=== PATIENT | female | born 1965 | race Caucasian/White ===

== ENCOUNTER 2020-02-05 17:55 | Emergency (ER) | payer OTHER, SELFPAY ==
--- NOTE | ~2020-02-05 | XR_ITS ---
EXAMINATION: XR barium swallow EXAM DATE: 02/05/2020 19:17 INDICATION: Dysphagia, feels like something is stuck in throat. TECHNIQUE: Standard thick followed by thin contrast barium esophagram examination was performed. The DAP for this procedure was 1.3 Gycm2. There is no prior study for comparison. FINDINGS: There is no laryngeal penetration. The pharynx is symmetric and without evidence of mass le nadeem or mucosal irregularity. There is no esophageal stricture or mass identified. There are no eso phageal diverticula. Gastroesophageal junction is normal in appearance. IMPRESSION: Normal exam. Reviewed, dictated and finalized at location A. IMPRESSION: Normal exam.
[2020-02-05 18:02] VITALS: BP 150/77; PULSE 88; RESP 18; TEMP 36.7; O2SAT 100
[2020-02-05 18:12] VITALS: BP 144/70; PULSE 81; RESP 21; O2SAT 96
--- NOTE | 2020-02-05 18:27 | ED.GENADULT ---
HPI - General Adult General Chief complaint: Unspecified Stated complaint: Eating and got something stuck Time Seen by Provider: 02/05/20 18:06 Source: patient Mode of arrival: ambulatory Limitations: no limitations History of Present Illness HPI narrative: Patient is a 54-year-old female who presents to emergency department noting that she swallowed some pizza today and now has had the sensation of a foreign body and has been unable to tolerate p.o. intake aside from slight toleration of her saliva. Patient notes she has had this issue historically and has required a dilatated shot in the past by GI. Patient denies any URI symptoms dyspnea fever chills nausea vomiting. Patient has not taken anything for her symptoms Related Data Home Medications Medication Instructions Recorded Confirmed famotidine [Pepcid] 20 mg PO DAILY 08/30/19 09/04/19 ferrous sulfate 325 mg PO DAILY 09/04/19 09/04/19 Allergies Allergy/AdvReac Type Severity Reaction Status Date / Time No Known Allergies Allergy Verified 02/05/20 18:20 Review of Systems Review of Systems: All systems reviewed & are unremarkable except as noted in HPI and below PMFSH Past Medical History Medical History (Updated 02/05/20 @ 19:35 by Malvin Allison PA-C) Adenomatous colon polyp Dysphagia GERD (gastroesophageal reflux disease) Morbid obesity Surgical History Surgical History (Updated 02/05/20 @ 18:28 by Malvin Allison PA-C) History of esophagogastroduodenoscopy (EGD) Family History Family History (Updated 07/30/19 @ 10:16 by Esperanza Cooper) Father Liver cancer Mother Breast cancer Heart disease Kidney disease Diabetes mellitus Other Hypertension Social History Social History Smoking status: Current every day smoker Alcohol intake: current Exam Narrative: Exam Narrative: GENERAL: Well-appearing, obese, and in no acute distress. HEAD: Normocephalic, atraumatic. EYES: PERRLA and EOMI. ENT: Nares clear, no rhinorrhea or epistaxis. Mucous membranes moist. Oropharynx without tonsillar hypertrophy exudate or other lesions. CHEST: Clear to auscultation. No respiratory distress. No wheezes rales or rhonchi HEART: Regular rate and rhythm. No murmur heard. Normal peripheral pulses. ABDOMEN: Soft, nontender, nondistended. EXTREMITIES: Normal range of motion. No edema. SKIN: Warm, dry, no rash. NEURO: No focal deficits. Alert and oriented x3. PSYCH: Normal mood and affect. Course Course Emergency Course: Patient in the room at this time in no distress aware of case findings treatment plan and diagnosis agreeing to follow-up with GI as instructed advised to stay to a soft diet was given medications and is able to tolerate p.o. intake at this time without difficulty and is feeling better. No high risk changes in the blood work Vital Signs Vital signs: Vital Signs Temperature 98.0 F 02/05/20 18:02 Pulse Rate 88 02/05/20 18:02 Respiratory Rate 18 02/05/20 18:02 Blood Pressure 150/77 H 02/05/20 18:02 Pulse Oximetry 100 02/05/20 18:02 Temperature 98.0 F 02/05/20 18:02 Pulse Rate 90 02/05/20 19:07 Respiratory Rate 22 H 02/05/20 19:01 Blood Pressure 119/63 02/05/20 19:01 Pulse Oximetry 98 02/05/20 19:01 Medical Decision Making MDM Narrative Medical decision making narrative: Patient with likely esophageal foreign body resolved able to swallow liquids feeling better at this time with medications felt appropriate for outpatient reevaluation by gastroenterology provided with reasons to return and instructed adhere to a soft diet Vital Signs Vital Signs: Vital Signs Temperature 98.0 F 02/05/20 18:02 Pulse Rate 88 02/05/20 18:02 Respiratory Rate 18 02/05/20 18:02 Blood Pressure 150/77 H 02/05/20 18:02 Pulse Oximetry 100 02/05/20 18:02 Temperature 98.0 F 02/05/20 18:02 Pulse Rate 90 02/05/20 19:07 Respiratory
[2020-02-05 18:29] LABS: Basophils Percent Auto 0.4 % (0.2-1.2); Eosinophils Absolute Auto 0.1 K/mm3 (0-0.3); Eosinophils Percent Auto 1.7 % (0-4.4); Hematocrit 38.5 % (37.0-47.0); Hemoglobin 12.7 g/dL (12.0-15.0); Immature Granulocyte Absolute 0.02 K/mm3 (0.00-0.031); Immature Granulocyte Percent A 0.3 % (0-0.5); Lymphocytes Absolute Auto 2.69 K/mm3 (0.9-3.2); Lymphocytes Percent Auto 34.6 % (18.3-44.2); Mean Corpuscular Hemoglobin 28.5 pg (26-34); Mean Corpuscular Volume 86.5 fl (80-100); Monocytes Absolute Auto 0.7 K/mm3 (0.1-0.6); Monocytes Percent Auto 8.5 % (2.6-8.5); Neutrophils Absolute Auto 4.2 K/mm3 (1.3-6.7); Neutrophils Percent Auto 54.5 % (45.5-73.1); Platelet Count Result 348 k/mm3 (150-375); Red Blood Count 4.45 M/mm3 (4.2-5.4); Red Cell Distribution Width 13.5 % (11.5-14.5); White Blood Count 7.8 K/mm3 (4.5-10.0)
[2020-02-05 18:38] LABS: Blood Urea Nitrogen 9 mg/dL (7-17); Calcium 9.1 mg/dL (8.4-10.2); Carbon Dioxide 31 mmol/L (22-30); Chloride 99 mmol/L (98-107); Estimated CRCL calculation 113 ml/min; Estimated Glomerular Filt Rate > 60; Glucose 190 mg/dL (65-105); Potassium 3.8 mmol/L (3.4-5.0); Sodium 135 mmol/L (137-145)
--- NOTE | 2020-02-05 18:56 | PC.NURSE ---
returns from barium swallow study. States continues to feel like she has a foreign body in throat.
[2020-02-05 18:58] VITALS: BP 131/54; PULSE 76; RESP 19; O2SAT 98
[2020-02-05 19:01] VITALS: BP 119/63; PULSE 78; RESP 22; O2SAT 98
[2020-02-05] MEDS: HYOSCYAMINE SULFATE 0.125 MG TABLET PO (19:03)
[2020-02-05] MEDS: NITROGLYCERIN SL 0.4 MG TABLET SUBLINGUAL (19:04)
[2020-02-05] MEDS: GLUCAGON FOR INJ 1 MG VIAL IV PUSH (19:06)
[2020-02-05 19:07] VITALS: PULSE 90
--- NOTE | 2020-02-05 19:23 | PC.NURSE ---
Pt reports is feeling better after meds po and IV. Report to SHRUTI Murguia, to continue care.
[2020-02-05 20:20] VITALS: BP 148/76; PULSE 78; RESP 16; O2SAT 98
== END 2020-02-05 20:13 | disposition home or self-care (01) ==
PROVIDERS: Emergency Medicine Emergency Medical Services; Emergency Provider Emergency Medicine; PCP Internal Medicine
DX: R13.10 Dysphagia, unspecified (principal); K21.9 Gastro-esophageal reflux disease without esophagitis; E66.01 Morbid (severe) obesity due to excess calories; Z68.42 Body mass index [BMI] 45.0-49.9, adult; F17.200 Nicotine dependence, unspecified, uncomplicated
CPT/HCPCS: 36415; 74220; 80048; 85025; 96374; 99284; A9270; J1610

== ENCOUNTER 2020-02-07 17:24 | Outpatient (CLI) | payer OTHER, SELFPAY ==
--- NOTE | ~2020-02-07 | XR_ITS ---
EXAMINATION: XR chest 2V DATE: 02/07/2020 17:43 INDICATION: Asthma. Shortness of breath. TECHNIQUE: Frontal and lateral views of the chest were obtained. COMPARISON: Chest 2 views 08/23/2018 FINDINGS: The chest demonstrates clear lungs without pneumonia, pleural effusion, or pneumothorax. Th e heart size is normal. There is an implanted electronic device in the anterior chest wall. IMPRESSION: 1. No acute cardiopulmonary disease. Reviewed, dictated and finalized at location A.
== END 2020-02-07 17:25 | disposition home or self-care (01) ==
PROVIDERS: Visit Provider Internal Medicine
DX: J45.909 Unspecified asthma, uncomplicated (principal)
CPT/HCPCS: 71046

== ENCOUNTER 2020-03-12 00:17 | Outpatient (CLI) | payer OTHER, SELFPAY ==
[2020-03-12 19:00] LABS: SARS-CoV-2 RNA PCR Negative
== END 2020-03-12 00:18 | disposition home or self-care (01) ==
LOC: ANHCOVIDDT 00:18
PROVIDERS: Visit Provider Internal Medicine Gastroenterology
DX: Z01.818 Encounter for other preprocedural examination (principal); Z11.59 Encounter for screening for other viral diseases
CPT/HCPCS: 87635; C9803; U0003

== ENCOUNTER 2020-03-14 03:45 | Day surgery (SDC) | payer OTHER, SELFPAY ==
[2020-03-06 14:10] VITALS: BMI 47.0
[2020-03-14 08:34] VITALS: BMI 47.9
[2020-03-14 08:38] VITALS: BP 156/73; PULSE 69; RESP 18; TEMP 36.1; O2SAT 97
--- NOTE | 2020-03-14 08:50 | WPDANESEPPF ---
Anes - Initial Pre Proc Eval Procedure: Operation Date: 03/14/20 09:15 Proposed Procedures p Esophagogastroduodenoscopy - Sachin Culver MD Date/Time: 03/14/20 08:50 Surgeon: Sachin Culver MD Pre Op Diagnosis: Dysphagia Patient Data Age: 54 Gender: F Height: 5 ft 6 in Weight: 134.6 kg Last Vital Signs Temp 36.1 C L 03/14/20 08:38 Pulse 69 03/14/20 08:38 Resp 18 03/14/20 08:38 BP 156/73 H 03/14/20 08:38 Pulse Ox 97 03/14/20 08:38 Allergies Allergy/AdvReac Type Severity Reaction Status Date / Time No Known Allergies Allergy Verified 03/14/20 08:31 Home Medications Medication Instructions Recorded Confirmed Type albuterol sulfate 90 mcg/actuation 1 inhalation INHALATION Q4H PRN 07/30/19 03/06/20 Rx aerosol inhaler #18 gm cholecalciferol (vitamin D3) 1,250 50,000 unit PO WEEKLY #30 cap 07/30/19 03/06/20 Rx mcg (50,000 unit) capsule ferrous sulfate 325 mg PO DAILY 09/04/19 03/06/20 History metoprolol tartrate 25 mg PO HS 03/06/20 03/06/20 History metoprolol tartrate 50 mg PO DAILY 03/06/20 03/06/20 History pantoprazole 40 mg PO DAILY 03/06/20 03/06/20 History vitamin B complex [B 1 tablet PO DAILY 03/06/20 03/06/20 History Complex-Vitamin B12] peg 3350-electrolytes 236 240 ml PO Q10M #4000 ml 03/12/20 Rx gram-22.74 gram-6.74 gram-5.86 gram solution Patient hx anesthesia problems: none Family hx anesthesia problems: none PMFSH Past Medical History Medical History Adenomatous colon polyp Dysphagia GERD (gastroesophageal reflux disease) Malaise Morbid obesity Neck discomfort Obese Pre-diabetes Surgical History Surgical History History of esophagogastroduodenoscopy (EGD) Family History Family History Father Liver cancer Mother Breast cancer Heart disease Kidney disease Diabetes mellitus Other Hypertension Social History Social History Smoking status: Current every day smoker Alcohol intake: current Gender identity (if verbalized by the patient): Female Anes - Eval Final PreProcedure Day of Procedure 03/14/20 08:50 Patient weight: morbidly obese Heart: regular rate and rhythm Lungs: clear to auscultation Airway: Mallampati scale class II and special considerations poor dentition Neurological: alert and oriented Last oral intake: >/= 8 hours ASA classification: III Emergent: no Anesthetic plan: proceed Anesthesia type and monitoring: general GIVS and standard monitoring Informed Consent: The patient's anesthetic plan and its attendant risks and benefits were discussed with the patient/family/POA. Questions were solicited and answers provided to the satisfaction of the patient/family/POA.
[2020-03-14] MEDS: LACTATED RINGERS 1,000 ML 150 ML IV CONT (08:51)
--- NOTE | 2020-03-14 09:51 | WPDHPUPDATE1 ---
History and Physical Update Update Date/Time: 03/14/20 09:51 History and Physical has been reviewed, including an updated exam of the patient. There are NO changes in the patient's condition. Risks, benefits, and alternatives have been discussed and questions answered. Patient agrees to proceed with procedure.
[2020-03-14] MEDS: BENZOCAINE (*SP) 60 ML SPRAY CAN (HURRICAINE) 1 SPRAY MUCOUS MEM (09:55)
[2020-03-14 10:10] VITALS: BP 125/70; PULSE 74; RESP 16; O2SAT 99
[2020-03-14 10:20] VITALS: BP 130/69; PULSE 75; RESP 18; O2SAT 100
[2020-03-14 10:30] VITALS: BP 132/72; PULSE 79; O2SAT 100
== END 2020-03-14 10:51 | disposition home or self-care (01) ==
PROVIDERS: Visit Provider Internal Medicine Gastroenterology
PROC: 0DJ08ZZ Inspection of Upper Intestinal Tract, Via Natural or Artificial Opening Endoscopic (ICD-10-PCS; CPT 43235; principal; 2020-03-14 09:15)
DX: K22.2 Esophageal obstruction (principal); K44.9 Diaphragmatic hernia without obstruction or gangrene; K21.9 Gastro-esophageal reflux disease without esophagitis; R73.03 Prediabetes; E66.01 Morbid (severe) obesity due to excess calories; Z68.42 Body mass index [BMI] 45.0-49.9, adult; F17.200 Nicotine dependence, unspecified, uncomplicated
CPT/HCPCS: 43249; C1726; J2001; J2704; J7120

== ENCOUNTER 2021-03-13 05:56 | Emergency (ER) | payer OTHER, SELFPAY ==
--- NOTE | ~2021-03-13 | XR_ITS ---
EXAMINATION: XR chest 2V DATE: 03/13/2021 06:37 INDICATION: Shortness of breath. TECHNIQUE: Frontal and lateral views of the chest were obtained. COMPARISON: Chest 2 views 02/07/2020 FINDINGS: Calcified right lung nodules and calcified right hilar lymph nodes are consistent with old granulomatous disease. No pleural effusion or pneumothorax. The heart size is normal. There is electr onic implant in left anterior chest wall. There is mild chronic anterior wedging of multiple midthora cic vertebral bodies. IMPRESSION: 1. No acute cardiopulmonary disease. Reviewed, dictated and finalized at location A.
--- NOTE | 2021-03-13 06:00 | ED.SOB ---
HPI - SOB/Dyspnea General Chief Complaint: Shortness of Breath/Dyspnea <Donovan Douglas MD - Last Filed: 03/14/21 13:10> Stated Complaint: shortness of breath, fever <Donovan Douglas MD - Last Filed: 03/14/21 13:10> Time Seen by Provider: 03/13/21 05:59 <Donovan Douglas MD - Last Filed: 03/14/21 13:10> History of Present Illness HPI Narrative: 55 yo female w/ h/o htn, palpitations presents to the ED for SOB. She reports that she has been SOB since she woke up this morning. This was accompanied by a feeling that her heart is racing and a warm fuzzy feeling. No CP, cough, congestion, calf pain/swelling. <Donovan Douglas MD - Last Filed: 03/14/21 13:10> Related Data Home Medications: Home Medications Medication Instructions Recorded Confirmed ferrous sulfate 325 mg PO DAILY 09/04/19 03/06/20 metoprolol tartrate 50 mg PO DAILY 03/06/20 03/06/20 vitamin B complex [B 1 tablet PO DAILY 03/06/20 03/06/20 Complex-Vitamin B12] Prilosec OTC 03/13/21 <Donovan Douglas MD - Last Filed: 03/14/21 13:10> Allergies/Adverse Reactions: Allergies Allergy/AdvReac Type Severity Reaction Status Date / Time No Known Allergies Allergy Verified 03/13/21 06:30 <Donovan Douglas MD - Last Filed: 03/14/21 13:10> Review of Systems Review of Systems: All systems reviewed & are unremarkable except as noted in HPI and below <Donovan Douglas MD - Last Filed: 03/14/21 13:10> Constitutional: Constitutional: Denies chills and Denies fever(s) <Donovan Douglas MD - Last Filed: 03/14/21 13:10> Cardiovascular: Cardiovascular: Denies chest pain <Donovan Douglas MD - Last Filed: 03/14/21 13:10> Respiratory: Respiratory: Denies cough, Reports dyspnea and Denies wheezing <Donovan Douglas MD - Last Filed: 03/14/21 13:10> Gastrointestinal: Gastrointestinal: Denies abdominal pain and Denies nausea <Donovan Dogulas MD - Last Filed: 03/14/21 13:10> Genitourinary: Genitourinary: Reports no additional female genitourinary complaints <Donovan Douglas MD - Last Filed: 03/14/21 13:10> Musculoskeletal: Musculoskeletal: Denies back pain <Donovan Douglas MD - Last Filed: 03/14/21 13:10> Neurologic: Denies dizziness and Denies weakness <Donovan Douglas MD - Last Filed: 03/14/21 13:10> [facility] Past Medical History Medical History: Medical History (Updated 03/14/21 @ 00:00 by [facility]) Adenomatous colon polyp Dysphagia GERD (gastroesophageal reflux disease) Malaise Morbid obesity Neck discomfort Obese Pre-diabetes <Donovan Douglas MD - Last Filed: 03/14/21 13:10> Surgical History Surgical History: Surgical History History of esophagogastroduodenoscopy (EGD) <Donovan Douglas MD - Last Filed: 03/14/21 13:10> Family History Family History: Family History Father Liver cancer Mother Breast cancer Heart disease Kidney disease Diabetes mellitus Other Hypertension <Donovan Douglas MD - Last Filed: 03/14/21 13:10> Social History Social History: Social History Smoking status: Current every day smoker Alcohol intake: current Gender identity (if verbalized by the patient): Female <Donovan Douglas MD - Last Filed: 03/14/21 13:10> Exam Const: General: no acute distress and alert <Donovan Douglas MD - Last Filed: 03/14/21 13:10> Nutritional Appearance: obese <Donovan Douglas MD - Last Filed: 03/14/21 13:10> Orientation/consciousness: patient oriented x3 <Donovan Douglas MD - Last Filed: 03/14/21 13:10> HENMT: Head: normal to inspection <Donovan Douglas MD - Last Filed: 03/14/21 13:10> Neck: Neck: normal visual inspection <Donovan Douglas MD - Last Filed: 03/14/21 13:10> Chest: Chest palpati
[2021-03-13 06:05] VITALS: BP 152/113; PULSE 99; RESP 18; TEMP 36.6; O2SAT 99
--- NOTE | 2021-03-13 06:07 | ECG_ITS ---
Measurements Intervals [place] Rate: 94 P: 64 IA: 189 QRS: 68 QRSD: 96 T: 48 QT: 359 QTc: 449 Interpretive Statements SINUS RHYTHM MINIMAL Q WAVES- INFERIOR LEADS BASELINE ARTIFACT- I, II, III, AVR, AVL, AVF, V3-V6 BORDERLINE ECG Electronically Signed On 03-13-2021 6:42:48 CDT by Eddy Aponte D.O.
[2021-03-13 06:27] LABS: Alveolar/Arterial O2 Gradient 1.7 mmHg; Base Excess ABG 3.9 mEq/l (+/-2.0); Device ROOM AIR; Fractional Inspired Oxygen 21 %; HCO3 ABG 28.1 mEq/l (22.0-26.0); Modified Allen's Test Pass; Oxygen Content ABG 19.2 %vol (16.0-22.0); Oxygen Saturation ABG 97.8 % (95.0-100.0); Oxyhemoglobin 93.6 % THb (90.0-100.0); PCO2 ABG 40.9 mmHg (35.0-45.0); PO2 ABG 99.1 mmHg (80.0-100.0); PO2 FiO2 Ratio Arterial Blood 4.72 %; Site Drawn LEFT RADIAL; Total Hemoglobin 14.5 g/dL (12.0-18.0); pH ABG 7.455 (7.350-7.450)
[2021-03-13 06:36] LABS: Basophils Absolute Auto 0.1 K/mm3 (0.0-0.1); Basophils Percent Auto 0.6 % (0.2-1.2); Eosinophils Absolute Auto 0.2 K/mm3 (0-0.3); Hematocrit 43.7 % (37.0-47.0); Hemoglobin 14.3 g/dL (12.0-15.0); Immature Granulocyte Absolute 0.03 K/mm3 (0.00-0.031); Immature Granulocyte Percent A 0.3 % (0-0.5); Immature Platelet Fraction Pct 2.7 % (0.9-11.2); Lymphocytes Absolute Auto 3.57 K/mm3 (0.9-3.2); Lymphocytes Percent Auto 37.5 % (18.3-44.2); Mean Corpuscular HGB Conc 32.7 g/dl (32-36); Mean Corpuscular Hemoglobin 28.6 pg (26-34); Mean Corpuscular Volume 87.4 fl (80-100); Mean Platelet Volume 9.5 fl (7.4-10.4); Monocytes Absolute Auto 0.8 K/mm3 (0.1-0.6); Monocytes Percent Auto 8.2 % (2.6-8.5); Neutrophils Absolute Auto 4.9 K/mm3 (1.3-6.7); Neutrophils Percent Auto 51.4 % (45.5-73.1); Platelet Count Result 389 k/mm3 (150-375); Red Cell Distribution Width 13.8 % (11.5-14.5); White Blood Count 9.5 K/mm3 (4.5-10.0)
[2021-03-13 06:59] VITALS: BP 166/96; PULSE 92; RESP 18; O2SAT 100
[2021-03-13 07:22] LABS: INR 0.9; Prothrombin Time 12.4 Seconds (11.1-14.7)
[2021-03-13 07:24] LABS: Anion Gap 8 mmol/L (8-16); Blood Urea Nitrogen 12 mg/dL (7-17); Carbon Dioxide 30 mmol/L (22-30); Chloride 99 mmol/L (98-107); Estimated CRCL calculation 109 ml/min; Estimated Glomerular Filt Rate > 60; Glucose 151 mg/dL (65-105); Partial Thromboplastin Time 26.6 SECONDS (22.3-36.8); Potassium 3.8 mmol/L (3.4-5.0); Sodium 137 mmol/L (137-145)
[2021-03-13 07:31] LABS: D Dimer 0.39 ug/mL (<0.48)
[2021-03-13 07:46] VITALS: BP 117/65; PULSE 89; RESP 17; O2SAT 98
[2021-03-13 08:08] VITALS: BP 132/76; PULSE 91; RESP 18; O2SAT 99
== END 2021-03-13 08:10 | disposition home or self-care (01) ==
PROVIDERS: Emergency Medicine; Emergency Provider Emergency Medicine; PCP Internal Medicine
DX: R06.00 Dyspnea, unspecified (principal); K21.9 Gastro-esophageal reflux disease without esophagitis; Z86.010 Personal history of colon polyps; R73.03 Prediabetes; E66.01 Morbid (severe) obesity due to excess calories; Z68.42 Body mass index [BMI] 45.0-49.9, adult; F17.200 Nicotine dependence, unspecified, uncomplicated; R94.31 Abnormal electrocardiogram [ECG] [EKG]
CPT/HCPCS: 36415; 36600; 71046; 80048; 82805; 85025; 85055; 85380; 85610; 85730; 93005; 99284

== ENCOUNTER 2021-04-17 22:32 | Emergency (ER) | payer OTHER, SELFPAY ==
--- NOTE | ~2021-04-17 | XR_ITS ---
XR chest 2V DATE: 04/17/2021 23:19 INDICATION: Shortness of breath. Covid 19. TECHNIQUE: PA and lateral views COMPARISON: 03/13/2021 2 view chest FINDINGS: Electronic implant is again noted in the medial mid left anterior chest wall. Normal heart size. No hilar or mediastinal enlargement. The lower left cardiac margin is obliterated and there is increased density overlying the lingular ar ea on the lateral view, suggesting lingular atelectasis and/or infiltrate. Cardiophrenic fat pad can simulate this appearance but the is considered less likely. If there is need for definitive determina tion, consider CT chest. The lungs are otherwise clear. No pleural effusion or pulmonary vascular congestion or pneumothorax. Normal heart size. No hilar or mediastinal enlargement. IMPRESSION: Possible lingular infiltrate and/atelectasis Reviewed, dictated and finalized at location A.
[2021-04-17 22:53] VITALS: BP 149/85; PULSE 89; RESP 18; TEMP 36.2; O2SAT 95
--- NOTE | 2021-04-17 22:56 | ECG_ITS ---
Measurements Intervals [place] Rate: 85 P: 48 HI: 189 QRS: 46 QRSD: 94 T: 48 QT: 353 QTc: 422 Interpretive Statements SINUS RHYTHM MINIMAL Q WAVES- INFERIOR LEADS BORDERLINE ECG Electronically Signed On 04-18-2021 6:51:16 CDT by Eddy Aponte D.O.
[2021-04-17 23:25] LABS: Basophils Percent Auto 0.2 % (0.2-1.2); Eosinophils Percent Auto 0.5 % (0-4.4); Hematocrit 41.5 % (37.0-47.0); Hemoglobin 13.6 g/dL (12.0-15.0); Immature Granulocyte Absolute 0.01 K/mm3 (0.00-0.031); Immature Granulocyte Percent A 0.2 % (0-0.5); Lymphocytes Absolute Auto 1.44 K/mm3 (0.9-3.2); Lymphocytes Percent Auto 34.6 % (18.3-44.2); Mean Corpuscular HGB Conc 32.8 g/dl (32-36); Mean Corpuscular Hemoglobin 28.8 pg (26-34); Mean Corpuscular Volume 87.7 fl (80-100); Mean Platelet Volume 9.2 fl (7.4-10.4); Monocytes Absolute Auto 0.4 K/mm3 (0.1-0.6); Monocytes Percent Auto 8.4 % (2.6-8.5); Neutrophils Absolute Auto 2.3 K/mm3 (1.3-6.7); Neutrophils Percent Auto 56.1 % (45.5-73.1); Platelet Count Result 223 k/mm3 (150-375); Red Blood Count 4.73 M/mm3 (4.2-5.4); Red Cell Distribution Width 13.6 % (11.5-14.5); White Blood Count 4.2 K/mm3 (4.5-10.0)
[2021-04-17 23:33] LABS: Anion Gap 7 mmol/L (8-16); Blood Urea Nitrogen 9 mg/dL (7-17); Calcium 8.8 mg/dL (8.4-10.2); Carbon Dioxide 26 mmol/L (22-30); Chloride 99 mmol/L (98-107); Estimated CRCL calculation 123 ml/min; Estimated Glomerular Filt Rate > 60; Glucose 132 mg/dL (65-110); Potassium 3.6 mmol/L (3.4-5.0); Sodium 132 mmol/L (137-145)
--- NOTE | 2021-04-18 02:52 | PC.NURSE ---
This nurse went into room to start IV and give toradol. Patient refused IV and toradol.
--- NOTE | 2021-04-18 03:24 | ED.SOB ---
HPI - SOB/Dyspnea General Chief Complaint: Shortness of Breath/Dyspnea Stated Complaint: covid positive Time Seen by Provider: 04/18/21 01:32 History of Present Illness HPI Narrative: Patient is a 55-year-old female who presents ER with cough and shortness of breath related to Covid. First diagnosed with Covid on 04/08/2021. She reports that she had her first fever this evening and was febrile to 101.1 ?F. She reports she has developed some new cough and achiness in her chest over the last day. She had no previous issues with her Covid. She is unvaccinated. Related Data Home Medications Medication Instructions Recorded Confirmed ferrous sulfate 325 mg PO DAILY 09/04/19 03/06/20 metoprolol tartrate 50 mg PO DAILY 03/06/20 03/06/20 vitamin B complex [B 1 tablet PO DAILY 03/06/20 03/06/20 Complex-Vitamin B12] Prilosec OTC 03/13/21 Allergies Allergy/AdvReac Type Severity Reaction Status Date / Time No Known Allergies Allergy Verified 04/17/21 22:56 Review of Systems Review of Systems: All systems reviewed & are unremarkable except as noted in HPI and below Constitutional: Constitutional: Denies chills, Reports fatigue and Reports fever(s) ENT: Denies nasal congestion and Denies sore throat Cardiovascular: Cardiovascular: Denies chest pain, Denies rapid heart rate and Denies radiating jaw, neck or arm pain Respiratory: Respiratory: Reports cough, Reports dyspnea and Denies wheezing Gastrointestinal: Gastrointestinal: Denies abdominal pain, Denies nausea and Denies vomiting [facility] Past Medical History Medical History (Updated 04/18/21 @ 03:25 by Agustín Giron MD) Adenomatous colon polyp Dysphagia GERD (gastroesophageal reflux disease) Malaise Morbid obesity Neck discomfort Obese Pre-diabetes Surgical History Surgical History History of esophagogastroduodenoscopy (EGD) Family History Family History Father Liver cancer Mother Breast cancer Heart disease Kidney disease Diabetes mellitus Other Hypertension Social History Social History Smoking status: Current every day smoker Alcohol intake: current Gender identity (if verbalized by the patient): Female Sexual Orientation (if Verbalized by the Patient): Straight or Heterosexual Exam Narrative: GENERAL: Well-appearing, well-nourished, and in no acute distress. HEAD: Normocephalic, atraumatic. CHEST: Clear to auscultation. No respiratory distress. HEART: Regular rate and rhythm. Normal peripheral pulses. ABDOMEN: Soft, nontender, nondistended. EXTREMITIES: Normal range of motion. No edema. SKIN: Warm, dry, no rash. NEURO: Alert and oriented x3. PSYCH: Normal mood and affect. Course Vital Signs Vital signs: Vital Signs Temperature 97.1 F L 04/17/21 22:53 Pulse Rate 89 04/17/21 22:53 Respiratory Rate 18 04/17/21 22:53 Blood Pressure 149/85 H 04/17/21 22:53 Pulse Oximetry 95 04/17/21 22:53 Temperature 97.1 F L 04/17/21 22:53 Pulse Rate 89 04/18/21 03:40 Respiratory Rate 21 H 04/18/21 03:40 Blood Pressure 146/82 H 04/18/21 03:40 Pulse Oximetry 97 04/18/21 03:40 MDM - SOB/Dyspnea Lab Data Result diagrams: 04/17/21 23:11 04/17/21 23:11 Labs: Lab Results 04/17/21 04/17/21 Range/Units 23:11 23:11 WBC 4.2 L (4.5-10.0) K/mm3 RBC 4.73 (4.2-5.4) M/mm3 Hgb 13.6 (12.0-15.0) g/dL Hct 41.5 (37.0-47.0) % MCV 87.7 (80-100) fl MCH 28.8 (26-34) pg MCHC 32.8 (32-36) g/dl RDW 13.6 (11.5-14.5) % Plt Count 223 (150-375) k/mm3 MPV 9.2 (7.4-10.4) fl Immature Gran % (Auto) 0.2 (0-0.5) % Neut % (Auto) 56.1 (45.5-73.1) % Lymph % (Auto) 34.6 (18.3-44.2) % [place] % (Auto) 8.4 (2.6-8.5) % Eos % (Auto) 0.5 (0-4.4) % Baso % (Auto) 0.2
[2021-04-18 03:40] VITALS: BP 146/82; PULSE 89; RESP 21; O2SAT 97
== END 2021-04-18 03:46 | disposition home or self-care (01) ==
PROVIDERS: Emergency Provider Emergency Medicine; PCP Internal Medicine
DX: U07.1 COVID-19 (principal); J12.82 Pneumonia due to coronavirus disease 2019; E66.01 Morbid (severe) obesity due to excess calories; R73.03 Prediabetes; F17.210 Nicotine dependence, cigarettes, uncomplicated
CPT/HCPCS: 36415; 71046; 80048; 85025; 93005; 99284

== ENCOUNTER 2021-12-07 07:34 | Emergency (ER) | payer OTHER, SELFPAY ==
[2021-12-07] VITALS (28 sets, daily range): BP systolic 106–161; BP diastolic 52–92; PULSE 73–93; RESP 14–22; TEMP 36.4–36.8; O2SAT 94–100
--- NOTE | ~2021-12-07 | CT_ITS ---
EXAMINATION: CT brain wo con INDICATION: Headache COMPARISON: None TECHNIQUE: Standard unenhanced head CT. The dose-length product (DLP) was 605.33 mGy-cm. The mA was a djusted according to patient size. Iterative reconstruction technique was employed. FINDINGS: There is no intracranial hemorrhage, acute infarction, or abnormal mass lesion. The ventric les are normal. There is no abnormal mass effect or midline shift. The ortiz-white matter differentiat ion is normal. The basal cisterns are patent. The orbits are normal. The paranasal sinuses, mastoids and calvarium are normal. IMPRESSION: 1. No acute intracranial abnormality. Reviewed, dictated and finalized at location A.
--- NOTE | ~2021-12-07 | CT_ITS ---
Patient Name: Patient Name MR#: Patient MRN Accession#: Accession Numbers EXAMINATION: CTA brain carotid DATE: 12/07/2021 17:47 INDICATION: unsteady gait TECHNIQUE: Computed tomographic angiography (CTA) of the head was performed without and with 100 mL O mnipaque-350 intravenous contrast. CTA of the neck was performed with intravenous contrast. The dose- length product was 1397.20 mGy-cm. Maximum intensity projection and volume rendered 3D-reconstruction s were created by the technologist on a separate workstation. COMPARISON: CT brain 12/07/2021. FINDINGS: CTA NECK: Aortic arch and proximal great vessels: Atherosclerotic calcifications at the visualized aortic arch and proximal great vessels. Right common carotid, carotid bifurcation, and internal carotid artery: Mild (less than 50%) stenosis at the carotid bifurcation. Calcified and noncalcified atherosclerotic plaque at the carotid bifurca tion. There is 0% stenosis of the proximal right internal carotid artery relative to normal distal ar yonatan lumen diameter (NASCET criteria). Left common carotid, carotid bifurcation, and internal carotid artery: No significant stenosis. No si gnificant atherosclerosis.There is 0% stenosis of the proximal left internal carotid artery relative to normal distal artery lumen diameter (NASCET criteria). Vertebral arteries: No significant stenosis. Vertebral arteries co-dominant. Other findings: No concerning finding in the lungs, spine, thyroid or mediastinum. CTA HEAD: No large vessel occlusion, aneurysm, high flow vascular malformation, nidus or extravasation. CT BRAIN: No acute large vessel infarct, intracranial hemorrhage, mass, or hydrocephalus. Trace right mastoid e ffusion. IMPRESSION: 1. Negative for intracranial large vessel occlusion. 2. No significant stenosis involving the carotid or vertebral arteries. 3. 0% stenosis of the proximal right internal carotid artery relative to normal distal artery lumen d iameter (NASCET criteria). 4. 0% stenosis of the proximal left internal carotid artery relative to normal distal artery lumen di ameter. Reviewed, dictated and finalized at location K. IMPRESSION: 1. Negative for intracranial large vessel occlusion. 2. No significant stenosis involving the carotid or vertebral arteries. 3. 0% stenosis of the proximal right internal carotid artery relative to normal distal artery lumen diameter (NASCET criteria). 4. 0% stenosis of the proximal left internal carotid artery relative to normal distal artery lumen diameter.
--- NOTE | 2021-12-07 07:40 | ECG_ITS ---
Measurements Intervals [place] Rate: 78 P: 55 ND: 237 QRS: 49 QRSD: 102 T: 39 QT: 375 QTc: 430 Interpretive Statements SINUS RHYTHM WITH FIRST DEGREE AV BLOCK NONDIAGNOSTIC INFERIOR Q-WAVES COMPARED TO ECG 04/17/2021 23:01:36 FIRST DEGREE AV BLOCK NOW PRESENT Electronically Signed On 12-07-2021 15:28:57 CDT by Cliff Peñaloza M.D.
--- NOTE | 2021-12-07 07:42 | ED.DIZZY ---
HPI - Dizziness General Chief Complaint: Dizziness Stated Complaint: unsteady gait Source: patient Mode of arrival: EMS Limitations: no limitations History of Present Illness HPI Narrative: Pt awoke this morning and felt off balance leaning to left when she got up and walked. Pt almost fell. Pt says the symptoms resolve when she sits down. Pt does not feel like she is going to pass out and denies CP or palpitations. Pt says she bent over and stood up a few days ago and got very lightheaded and dizzy and then had a LONG but all that eventually resolved. Pt has had vertigo in past but this feels different. MD elicited complaint: dizziness and difficulty walking Onset (ago): minute(s) (40) Timing: sudden onset Severity: moderate Description: off-balance and difficulty walking History of similar symptoms: No Exacerbating factors: standing Relieving factors: remaining still and lying down Associated symptoms: denies other symptoms Related Data Home Medications Medication Instructions Recorded Confirmed ferrous sulfate 325 mg PO DAILY 09/04/19 03/06/20 metoprolol tartrate 50 mg PO DAILY 03/06/20 03/06/20 vitamin B complex [B 1 tablet PO DAILY 03/06/20 03/06/20 Complex-Vitamin B12] Prilosec OTC 03/13/21 rosuvastatin 10 mg BYMOUTH DAILY 12/07/21 12/07/21 Allergies Allergy/AdvReac Type Severity Reaction Status Date / Time No Known Allergies Allergy Verified 04/17/21 22:56 Review of Systems Review of Systems: All systems reviewed & are unremarkable except as noted in HPI and below PMFSH Past Medical History Medical History (Updated 12/07/21 @ 11:09 by Scott Lopez III, DO) Adenomatous colon polyp Dysphagia GERD (gastroesophageal reflux disease) Malaise Morbid obesity Neck discomfort Obese Pre-diabetes Surgical History Surgical History History of esophagogastroduodenoscopy (EGD) Family History Family History Father Liver cancer Mother Breast cancer Heart disease Kidney disease Diabetes mellitus Other Hypertension Social History Social History Smoking status: Current every day smoker Alcohol intake: current Gender identity (if verbalized by the patient): Female Sexual Orientation (if Verbalized by the Patient): Straight or Heterosexual Exam Const: General: no acute distress and alert Orientation/consciousness: patient oriented x3 HENMT: Head: normal to inspection Ears: TM's normal bilaterally Eyes: Conjunctivae: conjunctivae normal Pupils: Equal, round and reactive pupils present EOM: EOMs intact bilaterally Neck: Neck: normal visual inspection Resp: Effort & Inspection: normal respiratory effort Auscultation: clear to auscultation bilaterally Cardio: Rate: regular rate Rhythm: regular rhythm GI: GI Palp: Yes Soft to palpation Skin: General skin exam: normal color Neuro: General: patient oriented x3, moves all extremities, no meningeal signs, no focal motor deficits and CN's II-XI intact bilaterally Cranial nerves: Yes Nystagmus not present Extrem: General: normal to inspection and no pedal edema Psych: Appearance: grossly normal Mental Status: mental status grossly normal Affect: normal affect Thought content: Yes Normal thought content present Course Vital Signs Vital signs: Vital Signs Temperature 98.2 F 12/07/21 07:35 Pulse Rate 88 12/07/21 07:35 Respiratory Rate 20 12/07/21 07:35 Blood Pressure 106/92 H 12/07/21 07:35 Pulse Oximetry 98 12/07/21 07:35 Temperature 97.6 F 12/07/21 11:54 Pulse Rate 85 12/07/21 18:02 Respiratory Rate 20 12/07/21 18:02 Blood Pressure 112/56 L 12/07/21 18:02 Pulse Oximetry 98 12/07/21 18:02 MDM - Dizziness Lab Data Result diagrams: 12/07/21 07:44 12/07/21 07:44 Labs: Lab Result
[2021-12-07 07:50] LABS: Basophils Absolute Auto 0.1 K/mm3 (0.0-0.1); Basophils Percent Auto 0.8 % (0.2-1.2); Eosinophils Absolute Auto 0.2 K/mm3 (0-0.3); Eosinophils Percent Auto 2.3 % (0-4.4); Hematocrit 44.7 % (37.0-47.0); Hemoglobin 14.1 g/dL (12.0-15.0); Immature Granulocyte Absolute 0.02 K/mm3 (0.00-0.031); Immature Granulocyte Percent A 0.3 % (0-0.5); Lymphocytes Absolute Auto 2.45 K/mm3 (0.9-3.2); Lymphocytes Percent Auto 37.7 % (18.3-44.2); Mean Corpuscular HGB Conc 31.5 g/dl (32-36); Mean Corpuscular Hemoglobin 28.4 pg (26-34); Mean Corpuscular Volume 89.9 fl (80-100); Mean Platelet Volume 8.9 fl (7.4-10.4); Monocytes Absolute Auto 0.5 K/mm3 (0.1-0.6); Monocytes Percent Auto 8.2 % (2.6-8.5); Neutrophils Absolute Auto 3.3 K/mm3 (1.3-6.7); Neutrophils Percent Auto 50.7 % (45.5-73.1); Platelet Count Result 324 k/mm3 (150-375); Red Blood Count 4.97 M/mm3 (4.2-5.4); Red Cell Distribution Width 14.1 % (11.5-14.5); White Blood Count 6.5 K/mm3 (4.5-10.0)
[2021-12-07 08:07] LABS: Alanine Aminotransferase 23 U/L (4-35); Albumin Level 4.4 g/dL (3.5-5.1); Alkaline Phosphatase 85 U/L (38-126); Anion Gap 6 mmol/L (8-16); Aspartate Amino Transferase 27 U/L (14-36); Bilirubin,Total 0.6 mg/dL (0.2-1.3); Blood Urea Nitrogen 11 mg/dL (7-17); Calcium 9.1 mg/dL (8.4-10.2); Carbon Dioxide 28 mmol/L (22-30); Chloride 103 mmol/L (98-107); Estimated CRCL calculation 121 ml/min; Estimated Glomerular Filt Rate > 60; Glucose 161 mg/dL (65-110); Potassium 3.6 mmol/L (3.4-5.0); Sodium 137 mmol/L (137-145)
[2021-12-07] MEDS: MECLIZINE HCL 25 MG TABLET PO (08:18)
[2021-12-07] MEDS: SODIUM CHLORIDE 0.9% IV 1,000 ML 999 ML IV CONT (08:18)
[2021-12-07] MEDS: ASPIRIN 81 MG CHEWABLE TABLET 324 MG PO (10:40)
--- NOTE | 2021-12-07 12:07 | PC.NURSE ---
Lunch ordered for the pt
--- NOTE | 2021-12-07 16:54 | PC.NURSE ---
bed status at [facility] - no bed at this time
--- NOTE | 2021-12-07 21:39 | PC.NURSE ---
Ambulance Update: As per MANDY Teran, new ambulance ETA is 23:30.
== END 2021-12-07 21:56 | disposition short-term general hospital (02) ==
PROVIDERS: Emergency Provider Emergency Medicine; PCP Internal Medicine
DX: R26.89 Other abnormalities of gait and mobility (principal); R73.03 Prediabetes; K21.9 Gastro-esophageal reflux disease without esophagitis; E66.01 Morbid (severe) obesity due to excess calories; Z68.42 Body mass index [BMI] 45.0-49.9, adult; Z86.010 Personal history of colon polyps; F17.200 Nicotine dependence, unspecified, uncomplicated; I44.0 Atrioventricular block, first degree
CPT/HCPCS: 36415; 70450; 70496; 70498; 80053; 85025; 93005; 96360; 99285; A9270; J7030; Q9967

== ENCOUNTER 2022-05-01 11:54 | Emergency (ER) | payer OTHER, SELFPAY ==
[2022-05-01] VITALS (18 sets, daily range): BP systolic 137–151; BP diastolic 77–88; PULSE 58–70; RESP 12–26; TEMP 36.6; O2SAT 95–100
--- NOTE | ~2022-05-01 | XR_ITS ---
EXAMINATION: XR chest 1V portable DATE: 05/01/2022 12:52 INDICATION: Chest pain TECHNIQUE: frontal view of the chest was obtained. COMPARISON: Chest radiograph dated 04/17/2021 FINDINGS: The lungs remain clear with no focal airspace opacities, pulmonary edema, pleural effusion or pneumot horax. The cardiomediastinal silhouette is normal. IMPRESSION: 1. No acute cardiopulmonary disease. Reviewed, dictated and finalized at location A.
--- NOTE | 2022-05-01 11:55 | ECG_ITS ---
Measurements Intervals [place] Rate: 59 P: 57 MT: 238 QRS: 45 QRSD: 92 T: 41 QT: 403 QTc: 401 Interpretive Statements SINUS BRADYCARDIA WITH FIRST DEGREE AV BLOCK MINIMAL Q WAVES- INFERIOR LEADS ABNORMAL ECG COMPARED TO ECG 12/07/2021 07:46:36 SINUS BRADYCARDIA NOW PRESENT Electronically Signed On 05-01-2022 18:37:07 CDT by Eddy Aponte D.O.
[2022-05-01 12:29] LABS: Basophils Percent Auto 0.6 % (0.2-1.2); Eosinophils Absolute Auto 0.2 K/mm3 (0-0.3); Eosinophils Percent Auto 2.6 % (0-4.4); Hematocrit 41.9 % (37.0-47.0); Hemoglobin 13.7 g/dL (12.0-15.0); Lymphocytes Absolute Auto 2.52 K/mm3 (0.9-3.2); Lymphocytes Percent Auto 40.3 % (18.3-44.2); Mean Corpuscular HGB Conc 32.7 g/dl (32-36); Mean Corpuscular Hemoglobin 29.1 pg (26-34); Mean Platelet Volume 9.2 fl (7.4-10.4); Monocytes Absolute Auto 0.5 K/mm3 (0.1-0.6); Monocytes Percent Auto 7.5 % (2.6-8.5); Neutrophils Absolute Auto 3.1 K/mm3 (1.3-6.7); Platelet Count Result 315 k/mm3 (150-375); Red Blood Count 4.71 M/mm3 (4.2-5.4); Red Cell Distribution Width 13.8 % (11.5-14.5); White Blood Count 6.3 K/mm3 (4.5-10.0)
[2022-05-01 12:40] LABS: Prothrombin Time 12.4 Seconds (11.1-14.7)
[2022-05-01 12:41] LABS: Partial Thromboplastin Time 27.9 SECONDS (22.3-36.8)
--- NOTE | 2022-05-01 12:46 | ED.GENADULT ---
HPI - General Adult General Chief complaint: Arrhythmia/Palpitations Stated complaint: feels like she is in afib Time Seen by Provider: 05/01/22 12:02 Source: RN notes reviewed History of Present Illness HPI narrative: Patient presents emergency room from home for palpitations. Patient states she has a history of palpitations and has been told she is possibly been atrial fibrillation before in the past. Patient states that she has not had palpitations for quite some time and states that starting yesterday she had an episode that lasted approximately 15 seconds where she felt like her heart skipped a beat and she felt lightheaded she states that following that she had no further episodes but then last night she had a mild feeling of chest tightness that lasted for approximately 2 minutes and resolved states that this morning she had checked her pulse rate was down in the 60s and she normally runs in the 70s and had decided come in for further evaluation she denies any fevers or chills abdominal pain nausea vomiting states she did have some mild shortness of breath. Patient denies any chest pain today Related Data Home Medications Medication Instructions Recorded Confirmed ferrous sulfate 325 mg (65 mg 325 mg PO DAILY 09/04/19 03/06/20 iron) tablet metoprolol tartrate 50 mg tablet 50 mg PO DAILY 03/06/20 03/06/20 vitamin B complex (B 1 tablet PO DAILY 03/06/20 03/06/20 Complex-Vitamin B12 tablet) Prilosec OTC 03/13/21 rosuvastatin 10 mg BYMOUTH DAILY 12/07/21 12/07/21 Allergies Allergy/AdvReac Type Severity Reaction Status Date / Time No Known Allergies Allergy Verified 05/01/22 12:24 Review of Systems Review of Systems: Gen.: Denies fevers or chills Eyes: Denies eye pain or visual change ENT: Denies congestion Respiratory reports shortness of breath last night none today CV: see HPI GI: Denies abdominal pain nausea, emesis or diarrhea Musculoskeletal: Denies back pain or muscle pain Neuro: Denies numbness, tingling, weakness or focal weakness Skin: Denies rash Except as documented, all other systems reviewed and negative [facility] Past Medical History Medical History (Updated 05/01/22 @ 15:53 by Bret Borja DO) Adenomatous colon polyp Dysphagia GERD (gastroesophageal reflux disease) Malaise Morbid obesity Neck discomfort Obese Pre-diabetes Surgical History Surgical History History of esophagogastroduodenoscopy (EGD) Family History Family History Father Liver cancer Mother Breast cancer Heart disease Kidney disease Diabetes mellitus Other Hypertension Social History Social History Smoking status: Current every day smoker Alcohol intake: current Gender identity (if verbalized by the patient): Female Sexual Orientation (if Verbalized by the Patient): Straight or Heterosexual Exam Narrative: APPEARANCE: No acute distress, nontoxic, resting in bed EYES: EOMI HEENT: Normocephalic, atraumatic, OMM RESPIRATORY: No respiratory distress Clear to auscultation bilaterally with no rhonchi wheezing or rales. CARDIOVASCULAR: Regular rate and rhythm without murmurs rubs or gallops. ABDOMINAL: Soft, nontender, nondistended, no rebound or guarding MUSCULOSKELETAl: Moves all extremities. No clubbing, cyanosis or edema. NEURO: Awake and alert. Following commands, speech normal, no focal deficits SKIN:: Warm, dry. 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 Discussed need for follow-up with primary care, proper use of medication, and reasons to return to the emergency department. Patient understands and agrees to current treatment
[2022-05-01 13:23] LABS: D Dimer < 0.27 ug/mL (<0.48)
[2022-05-01 13:24] LABS: Alanine Aminotransferase 19 U/L (6-35); Albumin Level 3.9 g/dL (3.5-5.1); Alkaline Phosphatase 73 U/L (38-126); Anion Gap 7 mmol/L (8-16); Aspartate Amino Transferase 22 U/L (14-36); Bilirubin,Total 0.2 mg/dL (0.2-1.3); Blood Urea Nitrogen 9 mg/dL (7-17); Calcium 9.3 mg/dL (8.4-10.2); Carbon Dioxide 28 mmol/L (22-30); Chloride 103 mmol/L (98-107); Estimated CRCL calculation 120 ml/min; Estimated Glomerular Filt Rate > 60; Glucose 149 mg/dL (65-110); Lipase 76 U/L (23-300); Sodium 138 mmol/L (137-145)
[2022-05-01 13:35] LABS: Troponin I < 0.012 ng/mL (0.000-0.034)
[2022-05-01 15:43] LABS: Troponin I < 0.012 ng/mL (0.000-0.034)
== END 2022-05-01 16:04 | disposition home or self-care (01) ==
PROVIDERS: Emergency Provider Emergency Medicine
DX: R00.2 Palpitations (principal); F17.200 Nicotine dependence, unspecified, uncomplicated; K21.9 Gastro-esophageal reflux disease without esophagitis; E66.01 Morbid (severe) obesity due to excess calories; Z68.41 Body mass index [BMI] 40.0-44.9, adult; R73.03 Prediabetes; I44.0 Atrioventricular block, first degree
CPT/HCPCS: 36415; 71045; 80053; 83690; 83735; 84484; 85025; 85380; 85610; 85730; 93005; 99284

== ENCOUNTER 2022-12-14 14:18 | Emergency (ER) | payer OTHER, SELFPAY ==
--- NOTE | ~2022-12-14 | XR_ITS ---
EXAMINATION: XR chest 2V 12/14/2022 14:43 INDICATION: Chest pain PROCEDURE: 2 view chest COMPARISON: Comparison to multiple prior studies sequentially, with oldest reviewed study dated 02/06. FINDINGS: The lungs are clear. The cardiomediastinal silhouette is within normal limits. There are no pleural effusions. There is no pneumothorax suspected. IMPRESSION: 1: NO ACUTE CARDIOPULMONARY DISEASE. Reviewed, dictated and finalized at location A.
[2022-12-14 14:25] VITALS: BP 150/81; PULSE 69; RESP 18; TEMP 36.5; O2SAT 100
--- NOTE | 2022-12-14 14:25 | ECG_ITS ---
Measurements Intervals [place] Rate: 73 P: 57 MN: 210 QRS: 53 QRSD: 93 T: 40 QT: 389 QTc: 431 Interpretive Statements SINUS RHYTHM WITH FIRST DEGREE AV BLOCK COMPARED TO ECG 05/01/2022 12:00:23 SINUS RHYTHM NOW PRESENT Electronically Signed On 12-14-2022 18:04:20 CDT by Guillermina Garcia M.D.
[2022-12-14 14:40] LABS: Basophils Percent Auto 0.5 % (0.2-1.2); Eosinophils Absolute Auto 0.2 K/mm3 (0-0.3); Hematocrit 41.1 % (37.0-47.0); Hemoglobin 13.3 g/dL (12.0-15.0); Immature Granulocyte Absolute 0.02 K/mm3 (0.00-0.031); Immature Granulocyte Percent A 0.3 % (0-0.5); Lymphocytes Absolute Auto 3.75 K/mm3 (0.9-3.2); Lymphocytes Percent Auto 49.6 % (18.3-44.2); Mean Corpuscular HGB Conc 32.4 g/dl (32-36); Mean Corpuscular Hemoglobin 28.9 pg (26-34); Mean Corpuscular Volume 89.2 fl (80-100); Mean Platelet Volume 8.8 fl (7.4-10.4); Monocytes Absolute Auto 0.7 K/mm3 (0.1-0.6); Monocytes Percent Auto 8.7 % (2.6-8.5); Neutrophils Absolute Auto 2.9 K/mm3 (1.3-6.7); Neutrophils Percent Auto 38.9 % (45.5-73.1); Platelet Count Result 334 k/mm3 (150-375); Red Blood Count 4.61 M/mm3 (4.2-5.4); Red Cell Distribution Width 13.8 % (11.5-14.5); White Blood Count 7.6 K/mm3 (4.5-10.0)
[2022-12-14 14:53] LABS: Prothrombin Time 12.9 Seconds (11.1-14.7)
[2022-12-14 14:54] LABS: Partial Thromboplastin Time 27.3 SECONDS (22.3-36.8)
[2022-12-14 14:57] LABS: Alanine Aminotransferase 26 U/L (6-35); Albumin Level 4.3 g/dL (3.5-5.1); Alkaline Phosphatase 90 U/L (38-126); Anion Gap 4 mmol/L (8-16); Aspartate Amino Transferase 23 U/L (14-36); Bilirubin,Total 0.6 mg/dL (0.2-1.3); Blood Urea Nitrogen 13 mg/dL (7-17); Carbon Dioxide 31 mmol/L (22-30); Chloride 100 mmol/L (98-107); Estimated CRCL calculation 117 ml/min; Estimated Glomerular Filt Rate > 60; Glucose 106 mg/dL (65-110); Lipase 92 U/L (23-300); Potassium 4.1 mmol/L (3.4-5.0); Sodium 135 mmol/L (137-145)
[2022-12-14 15:06] LABS: Troponin I < 0.012 ng/mL (0.000-0.034)
== END 2022-12-14 15:15 | disposition left against medical advice (07) ==
PROVIDERS: Emergency Provider Emergency Medicine
DX: R53.1 Weakness (principal)
CPT/HCPCS: 36415; 71046; 80053; 83690; 84484; 85025; 85610; 85730; 93005; 99199